=== PATIENT | female | born 1955 | race Caucasian/White ===

== ENCOUNTER 2022-04-26 15:22 | Emergency (ER) | payer MEDICARE, SELFPAY ==
[2022-04-26 15:36] VITALS: BP 150/68; PULSE 82; RESP 14; TEMP 37.1; O2SAT 100
--- NOTE | 2022-04-26 17:01 | ED.URI ---
HPI - URI/Sore Throat General Chief Complaint: Upper Respiratory Infection Stated Complaint: cough w/chest congestion Time Seen by Provider: 04/26/22 17:08 Source: patient and RN notes reviewed Mode of arrival: ambulatory Limitations: no limitations History of Present Illness HPI Narrative: 66-year-old female presents with concern for 1/2 week history of worsening cough, chest congestion, fatigue, headache, nasal congestion. She reports she has chronic sinus problems. She reports she is taking allergy medicine MD elicited complaint: cough and nasal congestion Related Data Home Medications Medication Instructions Recorded Confirmed famotidine 20 mg tablet 20 mg PO DAILY 04/26/22 04/26/22 levothyroxine 50 mcg tablet 50 mcg PO 4XW 04/26/22 04/26/22 levothyroxine 75 mcg tablet 75 mcg PO 3XW 04/26/22 04/26/22 lisinopril 20 1 tablet PO DAILY 04/26/22 04/26/22 mg-hydrochlorothiazide 12.5 mg tablet rosuvastatin 20 mg tablet 20 mg PO DAILY 04/26/22 04/26/22 Allergies Allergy/AdvReac Type Severity Reaction Status Date / Time No Known Allergies Allergy Verified 04/26/22 16:03 Review of Systems Review of Systems: CONSTITUTIONAL: Reports malaise, fatigue. Denies chills, sweats, or fever. EYES: Denies visual changes, redness, or discharge. ENT: Reports rhinorrhea, congestion. Denies sinus pain, otalgia and sore throat. CARDIOVASCULAR: Denies chest pain, palpitations, or edema. RESPIRATORY: Reports cough, chest congestion. Denies Denies dyspnea. GASTROINTESTINAL: Denies abdominal pain, nausea, vomiting, diarrhea SKIN: Denies rash or itching. MUSCULOSKELETAL: Reports myalgia. NEUROLOGIC: Reports headache. All systems reviewed & are unremarkable except as noted in HPI and below PMFSH Comments At time of signature, agree with nursing past medical, surgical, social and family history. There is no relevant family history pertinent to the presenting complaint Exam Narrative: GENERAL: Well-appearing, well-nourished, and in no acute distress. HEAD: Normocephalic EYES: PERRLA, conjunctivae clear ENT: Nares clear, turbinates edematous and erythematous. Mucous membranes moist. TM pearly wang with dull light reflex bilaterally; no tragal tenderness. Oropharynx not erythematous without lesions. Tonsils not enlarged and without exudate, no drooling, no hoarseness, no trismus, uvula midline. NECK: Supple. No lymphadenopathy CHEST: Clear to auscultation, breath sounds equal. No wheezing, rhonchi, rales, or stridor. No respiratory distress, speaks in full sentences. HEART: Regular rate and rhythm. No murmur heard. SKIN: Warm, dry, no rash. NEURO: Alert and oriented x3. PSYCH: Normal mood and affect Course Course Emergency Course: Patient is aware of diagnosis, understands and agrees to treatment plan. Anticipatory guidance given. Patient agrees to follow-up as directed and is aware of reasons to seek care at the emergency department. Portions of this record may have been created with voice recognition software Level of Care: Express Care Visit Vital Signs Vital signs: Vital Signs Temperature 98.7 F 04/26/22 15:36 Pulse Rate 82 04/26/22 15:36 Respiratory Rate 14 04/26/22 15:36 Blood Pressure 150/68 H 04/26/22 15:36 Pulse Oximetry 100 04/26/22 15:36 Oxygen Delivery Room Air 04/26/22 15:36 Temperature 98.7 F 04/26/22 15:36 Pulse Rate 82 04/26/22 15:36 Respiratory Rate 14 04/26/22 15:36 Blood Pressure 150/68 H 04/26/22 15:36 Pulse Oximetry 100 04/26/22 15:36 Oxygen Delivery Room Air 04/26/22 15:36 Reviewed. MDM - URI/Sore Throat MDM Narrative Medical decision making narrative: Differential diagnosis considered: Gold virus, strep pharyngitis, allergic rhinitis, upper respiratory tract infection, sinusitis, rhinosinusitis, nasopharyngitis. viral pharyngitis, otitis media, otitis externa, pneumonia, bronchitis, viral cough syndrome, viral syndrome, and influenza. Exam findings hellen
== END 2022-04-26 17:10 | disposition home or self-care (01) ==
PROVIDERS: Emergency Provider Nurse Practitioner; PCP Internal Medicine
DX: J40 Bronchitis, not specified as acute or chronic (principal); J32.9 Chronic sinusitis, unspecified; E78.00 Pure hypercholesterolemia, unspecified; I10 Essential (primary) hypertension; E03.9 Hypothyroidism, unspecified; K21.9 Gastro-esophageal reflux disease without esophagitis
CPT/HCPCS: 87804; 99203; G0463

== ENCOUNTER 2022-08-09 17:10 | Emergency (ER) | payer MEDICARE, SELFPAY ==
--- NOTE | 2022-08-09 17:30 | PC.NURSE ---
Patient informed this RN that she did not want to wait to be seen in the emergency department and that she is going to call her orthopedic doctor to make an appointment in the morning.
== END 2022-08-09 19:00 | disposition left against medical advice (07) ==
PROVIDERS: PCP Internal Medicine
DX: Z53.21 Procedure and treatment not carried out due to patient leaving prior to being seen by health care provider (principal)
CPT/HCPCS: 99199

== ENCOUNTER 2023-03-25 10:15 | Emergency (ER) | payer MEDICARE, SELFPAY ==
[2023-03-25 10:26] VITALS: BP 120/86; PULSE 76; RESP 16; TEMP 36.4; O2SAT 100
--- NOTE | 2023-03-25 10:39 | ED.FEVER ---
HPI - Fever General Chief Complaint: Fever Stated Complaint: Fever Time Seen by Provider: 03/25/23 10:40 Source: patient and RN notes reviewed Mode of arrival: ambulatory Limitations: no limitations History of Present Illness HPI Narrative: 67-year-old female presenting for complaint fatigue, sinus congestion, fever, and decreased appetite over the past 5 days. She endorses feeling off balance with walking at times. States her URI symptoms have improved, and the fever broke 2 days ago. Yesterday was the first day she was able to get out of bed for short time. States she was unable to complete work today due to extreme fatigue. Endorses 1 sick contact in her household. She is not taking anything for symptoms. Denies sob, wheezing, n/v/d. Related Data Home Medications Medication Instructions Recorded Confirmed famotidine 20 mg tablet 20 mg PO DAILY 04/26/22 03/25/23 levothyroxine 50 mcg tablet 50 mcg PO 4XW 04/26/22 03/25/23 levothyroxine 75 mcg tablet 75 mcg PO 3XW 04/26/22 03/25/23 lisinopril 20 1 tablet PO DAILY 04/26/22 03/25/23 mg-hydrochlorothiazide 12.5 mg tablet rosuvastatin 20 mg tablet 20 mg PO DAILY 04/26/22 03/25/23 Allergies Allergy/AdvReac Type Severity Reaction Status Date / Time No Known Allergies Allergy Verified 04/26/22 16:03 Review of Systems Review of Systems: CONSTITUTIONAL: Endorses malaise, chills, sweats, fever EYES: Denies visual changes, redness, or discharge ENT: Reports rhinorrhea, denies sinus pain, otalgia, sore throat CARDIOVASCULAR: Denies chest pain, palpitations, edema RESPIRATORY: Reports cough, post nasal drainage. Denies dyspnea GASTROINTESTINAL: Denies abdominal pain, nausea, vomiting, diarrhea SKIN: Denies rash or itching MUSCULOSKELETAL: Endorses myalgia PMFSH Past Medical History Medical History (Updated 03/25/23 @ 11:23 by Hanna Morales APRN) Hypothyroid Exam Narrative: GENERAL: well-appearing, nontoxic no acute distress. HEAD: Normocephalic EYES: PERRLA, conjunctivae clear ENT: Mucous membranes moist. TMs pearly wang with dull light reflex bilaterally; no tragal tenderness. Oropharynx mildly erythematous without lesions or exudate, no drooling, no hoarseness, no trismus, uvula midline. No tripod positioning, muffled voice, soft palate or pharyngeal wall bulging NECK: Supple. No lymphadenopathy CHEST: Clear to auscultation, breath sounds equal. No wheezing, rhonchi, rales, or stridor. No respiratory distress, speaks in full sentences. HEART: Regular rate and rhythm. No murmur heard. SKIN: Warm, dry, no rash. NEURO: Alert and oriented x3. PSYCH: Normal mood and affect Course Course Emergency Course: Patient is aware of diagnosis, understands and agrees to treatment plan. Anticipatory guidance given. Patient agrees to follow-up as directed and is aware of reasons to seek care at the emergency department. Portions of this record may have been created with voice recognition software Level of Care: Express Care Visit Vital Signs Vital signs: Vital Signs Temperature 97.6 F 03/25/23 10:26 Pulse Rate 76 03/25/23 10:26 Respiratory Rate 16 03/25/23 10:26 Blood Pressure 120/86 03/25/23 10:26 Pulse Oximetry 100 03/25/23 10:26 Temperature 97.6 F 03/25/23 10:26 Pulse Rate 76 03/25/23 10:26 Respiratory Rate 16 03/25/23 10:26 Blood Pressure 120/86 03/25/23 10:26 Pulse Oximetry 100 03/25/23 10:26 reviewed MDM - Fever MDM Narrative Medical decision making narrative: Discussed physical exam findings and urine results. Patient did not provide enough urine to send for culture, she is aware. Declines additional testing. States she needs a return to work note. Advised supportive measures and signs/symptoms to go to the ER. Pt is appropriate for outpt treatment and f/u. Differential Diagnosis Differential diagnosis: Likely fever of unknown origin, gastroenteritis, viral infection, sepsis, influenza and o
== END 2023-03-25 10:56 | disposition home or self-care (01) ==
PROVIDERS: Emergency Provider Nurse Practitioner Family
DX: B34.9 Viral infection, unspecified (principal); E03.9 Hypothyroidism, unspecified
CPT/HCPCS: 81003; 99212; G0463